=== PATIENT | male | born 1990 | race Hispanic/Latino ===

== ENCOUNTER 2020-06-30 10:35 | Emergency (ER) | payer SELFPAY ==
[2020-06-30 14:10] LABS: Urine Blood NEGATIVE (NEG); Urine Glucose NEGATIVE (NEG); Urine Protein NEGATIVE (NEG); Urine Specific Gravity 1.025 (1.005-1.030); Urine pH 7.5 (5.0-7.0)
--- NOTE | 2020-06-30 15:12 | EDPHYS ---
Physician Documentation [facility] Name: Saeed Stoll Age: 30 yrs Sex: Male : 1990 Arrival Date: 06/30/2020 Time: 10:36 Bed 28 Private MD: JOAQUIM Physician Abraham Lisa HPI: 06/30 15:03 This 30 yrs old Male presents to ER via Ambulatory with complaints of Back shirley Pain, Fever, Headache. 15:03 The patient presents with pain that is acute, and decreased range of motion. The shirley symptoms are located in the right subscapular area. Onset: The symptoms/episode began/occurred 2 day(s) ago. The pain does not radiate. Associated signs and symptoms: The patient has no apparent associated signs or symptoms. Modifying factors: The patient symptoms are alleviated by remaining still, the patient symptoms are aggravated by movement. Severity of symptoms: At their worst the symptoms were mild, in the emergency department the symptoms are unchanged. The patient has not experienced similar symptoms in the past. Historical: - Allergies: 11:56 No Known Allergies; ca1 - Home Meds: :56 None [Active]; ca1 - PMHx: :56 None; ca1 - PSHx: 11:56 Appendectomy; ca1 - Immunization history:: Flu vaccine is not up to date. - Social history:: Smoking status: Patient denies any tobacco usage or history of. - Family history:: not pertinent. ROS: 15:03 Constitutional: Negative for fever, chills, and weight loss, Eyes: Negative for injury, shirley pain, redness, and discharge, ENT: Negative for injury, pain, and discharge, Neck: Negative for injury, pain, and swelling, Cardiovascular: Negative for chest pain, palpitations, and edema, Respiratory: Negative for shortness of breath, cough, wheezing, and pleuritic chest pain, Abdomen/GI: Negative for abdominal pain, nausea, vomiting, diarrhea, and constipation, Back: Negative for injury and pain, : Negative for injury, bleeding, discharge, and swelling, MS/Extremity: Negative for injury and deformity, Skin: Negative for injury, rash, and discoloration, Neuro: Negative for headache, weakness, numbness, tingling, and seizure, Psych: Negative for depression, anxiety, suicide ideation, homicidal ideation, and hallucinations, Allergy/Immunology: Negative for hives, rash, and allergies, Endocrine: Negative for neck swelling, polydipsia, polyuria, polyphagia, and marked weight changes, Hematologic/Lymphatic: Negative for swollen nodes, abnormal bleeding, and unusual bruising. Exam: 15:04 Constitutional: This is a well developed, well nourished patient who is awake, alert, shirley and in no acute distress. Head/Face: Normocephalic, atraumatic. Eyes: Pupils equal round and reactive to light, extra-ocular motions intact. Lids and lashes normal. Conjunctiva and sclera are non-icteric and not injected. Cornea within normal limits. Periorbital areas with no swelling, redness, or edema. ENT: Nares patent. No nasal discharge, no septal abnormalities noted. Tympanic membranes are normal and external auditory canals are clear. Oropharynx with no redness, swelling, or masses, exudates, or evidence of obstruction, uvula midline. Mucous membranes moist. Neck: Trachea midline, no thyromegaly or masses palpated, and no cervical lymphadenopathy. Supple, full range of motion without nuchal rigidity, or vertebral point tenderness. No Meningismus. Cardiovascular: Regular rate and rhythm with a normal S1 and S2. No gallops, murmurs, or rubs. Normal PMI, no JVD. No pulse deficits. Respiratory: Lungs have equal breath sounds bilaterally, clear to auscultation and percussion. No rales, rhonchi or wheezes noted. No increased work of breathing, no retractions or nasal flaring. Abdomen/GI: Soft, non-tender, with normal bowel sounds. No distension or tympany. No guarding or rebound. No evidence of tenderness throughout. Back: No spinal tenderness. No costovertebral tenderness. Full range of motion. Male : Normal genitalia with no discharge or lesions. Skin: Warm, dry with normal turgor. Normal color with no rashes, no lesions, and no evidence of cellulitis. MS/ Extremity: Pulses equal, no cyanosis. Neurovascular intact. Full, normal range of motion. Neuro: Awake and alert, GCS 15, oriented to person, place, time, and situation. Cranial nerves II-XII grossly intact. Motor strength 5/5 in all extremities. Sensory grossly intact. Cerebellar exam normal. Normal gait. Psych: Awake, alert, with orientation to person, place and time. Behavior, mood, and affect are within normal limits. 15:04 Chest/axilla: Inspection: normal, no acute changes, Palpation: is normal, no acute changes, crepitus, is not appreciated, tenderness, is not appreciated. Vital Signs: 11:53 BP 125 / 86; Pulse 70; Resp 18 S; Temp 97.6(TE); Pulse Ox 100% on R/A; Weight 90.72 kg ca1 (R); Height 5 ft. 6 in. (167.64 cm) (R); Pain 5/10; 14:30 BP 125 / 78; Pulse 75; Resp 16 S; Temp 98.0(TE); Pulse Ox 99% on R/A; aa5 11:53 Body Mass Index 32.28 (90.72 kg, 167.64 cm) ca1 MDM: 13:37 Patient medically screened. shirley 15:05 Differential diagnosis: sprain. Data reviewed: vital signs, nurses notes, radiologic shirley studies. Data interpreted: athletic monitor: rate is 70 beats/min, rhythm is regular, Pulse oximetry: on room air is 70 %. Test interpretation: by ED physician or midlevel provider: plain radiologic studies. Counseling: I had a detailed discussion with the patient and/or guardian regarding: the historical points, exam findings, and any diagnostic results supporting the discharge/admit diagnosis, radiology results. 06/30 13:49 Order name: Urine Dipstick--Ancillary (enter results) eb 06/30 14:10 Order name: Urine Dipstick-Ancillary; Complete Time: 14:30 EDWV 06/30 14:30 Order name: Chest Single View XRAY shirley Administered Medications: 15:29 Drug: Motrin 600 mg Route: PO; aa5 15:35 Follow up: Response: Medication administered at discharge. aa5 Disposition: 06/30/20 15:11 Discharged to Home. Impression: Chest pain, unspecified - wall. - Condition is Stable. - Discharge Instructions: Nonspecific Chest Pain, Chest Wall Pain, Chest Wall Pain, [id number], Nonspecific Chest Pain, [id number]. - Prescriptions for Ibuprofen 600 mg Oral Tablet - take 1 tablet by ORAL route every 6 hours As needed take with food; 20 tablet. - Medication Reconciliation Form, Thank You Letter, Antibiotic Education, Prescription Opioid Use, Work release form form. - Follow up: Private Physician; When: 2 - 3 days; Reason: Recheck today's complaints, Continuance of care, Re-evaluation by your physician. - Problem is new. - Symptoms have improved. Signatures: Dispatcher [employer] Abraham Butler MD MD cha Calderon, Audri RN RN aa5 Clarisse Beltran RN RN ca1 Corrections: (The following items were deleted from the chart) 15:37 15:11 06/30/2020 15:11 Discharged to Home. Impression: Chest pain, unspecified - wall. aa5 Condition is Stable. Forms are Medication Reconciliation Form, Thank You Letter, Antibiotic Education, Prescription Opioid Use. Follow up: Private Physician; When: 2 - 3 days; Reason: Recheck today's complaints, Continuance of care, Re-evaluation by your physician. Problem is new. Symptoms have improved. shirley
--- NOTE | 2020-06-30 15:12 | ER ---
Nurse's Notes [facility] Name: Saeed Stoll Age: 30 yrs Sex: Male : 1990 Arrival Date: 06/30/2020 Time: 10:36 Bed 28 Private MD: Diagnosis: Chest pain, unspecified-wall Presentation: 06/30 11:53 Chief complaint: Patient states: Headache and pain on mid back and fever x 2 days. ca1 Coronavirus screen: Client denies travel out of the [place] in the last 14 days. fever, headache, Client presents with at least one sign or symptom that may indicate coronavirus-19. Standard/surgical mask placed on the client. Provider contacted for isolation considerations. Ebola Screen: Patient negative for fever greater than or equal to 101.5 degrees Fahrenheit, and additional compatible Ebola Virus Disease symptoms Patient denies exposure to infectious person. Patient denies travel to an Ebola-affected area in the 21 days before illness onset. No symptoms or risks identified at this time. Initial Sepsis Screen: Does the patient meet any 2 criteria? No. Patient's initial sepsis screen is negative. Does the patient have a suspected source of infection? No. Patient's initial sepsis screen is negative. Risk Assessment: Do you want to hurt yourself or someone else? Patient reports no desire to harm self or others. Onset of symptoms was June 30, 2020. 11:53 Method Of Arrival: Ambulatory ca1 11:53 Acuity: RAQUEL 3 ca1 Historical: - Allergies: 11:56 No Known Allergies; ca1 - Home Meds: 11:56 None [Active]; ca1 - PMHx: 11:56 None; ca1 - PSHx: 11:56 Appendectomy; ca1 - Immunization history:: Flu vaccine is not up to date. - Social history:: Smoking status: Patient denies any tobacco usage or history of. - Family history:: not pertinent. Screenin:45 Abuse screen: Denies threats or abuse. Nutritional screening: No deficits noted. aa5 Tuberculosis screening: No symptoms or risk factors identified. Fall Risk None identified. Assessment: 13:45 General: Appears comfortable, Behavior is calm, cooperative, Reports chills for 1-2 aa5 days, Pt states "I just got tested for COVID and it was negative". Pain: Complains of pain in right mid back Pain does not radiate. Pain currently is 5 out of 10 on a pain scale. Quality of pain is described as aching, Pain began 2-3 days ago. Pt states "the pain started after I had a massage done" Is continuous. Neuro: Level of Consciousness is awake, alert, obeys commands, Oriented to person, place, time, situation. Cardiovascular: Patient's skin is warm and dry. Respiratory: Airway is patent Respiratory effort is even, unlabored, Respiratory pattern is regular, symmetrical, Denies cough, shortness of breath. GI: No signs and/or symptoms were reported involving the gastrointestinal system. : Denies burning with urination, inability to void, urinary frequency, urgency. EENT: No signs and/or symptoms were reported regarding the EENT system. Derm: Skin is pink, warm \\T\\ dry. Musculoskeletal: Range of motion: intact in all extremities. 14:30 Reassessment: Patient is alert, oriented x 3, equal unlabored respirations, skin aa5 warm/dry/pink. 15:35 Reassessment: Patient is alert, oriented x 3, equal unlabored respirations, skin aa5 warm/dry/pink. Vital Signs: 11:53 BP 125 / 86; Pulse 70; Resp 18 S; Temp 97.6(TE); Pulse Ox 100% on R/A; Weight 90.72 kg ca1 (R); Height 5 ft. 6 in. (167.64 cm) (R); Pain 5/10; 14:30 BP 125 / 78; Pulse 75; Resp 16 S; Temp 98.0(TE); Pulse Ox 99% on R/A; aa5 11:53 Body Mass Index 32.28 (90.72 kg, 167.64 cm) ca1 ED Course: 10:36 Patient arrived in ED. am2 11:55 Triage completed. ca1 11:56 Arm band placed on right wrist. ca1 13:36 Rebekah Bertrand RN is Primary Nurse. aa5 13:37 Abraham Lisa MD is Attending Physician. shirley 13:45 Patient has correct armband on for positive identification. Bed in low position. Call aa5 light in reach. Side rails up X 1. 15:35 No provider procedures requiring assistance completed. Patient did not have IV access aa5 during this emergency room visit. Administered Medications: 15:29 Drug: Motrin 600 mg Route: PO; aa5 15:35 Follow up: Response: Medication administered at discharge. aa5 Outcome: 15:11 Discharge ordered by . shirley 15:35 Discharged to home ambulatory. aa5 15:35 Condition: stable 15:35 Discharge instructions given to patient, Instructed on discharge instructions, follow up and referral plans. medication usage, Demonstrated understanding of instructions, follow-up care, medications, Prescriptions given X 1. 15:37 Patient left the ED. aa5 Signatures: Abraham Lisa MD MD cha Calderon, Audri, RN RN aa5 Elyssa Vasquez Cheryl RN RN ca1
[2020-06-30] MEDS ORDERED: IBUPROFEN 200 MG TAB PO ONE (15:41)
[2020-06-30 15:42] VITALS: BP 125/86; TEMP 97.6; O2SAT 100
--- NOTE | 2020-06-30 15:43 | RAD REPORT ---
EXAM DESCRIPTION: Lázaro Single View06/30/2020 3:24 pm CLINICAL HISTORY: Shortness of breath COMPARISON: none FINDINGS: The lungs appear clear of acute infiltrate. The heart is normal size IMPRESSION: No acute abnormalities displayed
== END 2020-06-30 15:37 | disposition home or self-care (01) ==
LOC: ER 10:35
DX: R07.89 Other chest pain (principal)
CPT/HCPCS: 71045; 81003; 99283

== ENCOUNTER 2020-11-22 08:19 | Emergency (ER) | payer SELFPAY ==
--- NOTE | 2020-11-22 11:03 | EDPHYS ---
Physician Documentation [facility] Name: Saeed Stoll Age: 30 yrs Sex: Male : 1990 Arrival Date: 11/22/2020 Time: 08:32 Bed DIS4 Private MD: ED Physician Abraham Lisa HPI: 11/22 10:23 This 30 yrs old Male presents to ER via Ambulatory with complaints of Back jr8 Pain, bodyaches/chills, Fever. 10:23 Severity of symptoms: At their worst the symptoms were mild, in the emergency jr8 department the symptoms are unchanged. The patient has not experienced similar symptoms in the past. The patient has not recently seen a physician. 30-year-old male patient that for the past 2 weeks has had fever body aches chills and back pain. Concerned that he may have Covid as it is not going away. Denies any other symptoms at this time.. Historical: - Allergies: 09:29 No Known Allergies; iw - Immunization history:: Adult Immunizations unknown. - Social history:: Smoking status: . ROS: 10:23 Cardiovascular: Negative for chest pain, palpitations, and edema, Abdomen/GI: Negative jr8 for abdominal pain, nausea, vomiting, diarrhea, and constipation, MS/Extremity: Negative for injury and deformity, Skin: Negative for injury, rash, and discoloration, Neuro: Negative for headache, weakness, numbness, tingling, and seizure. 10:23 Constitutional: Positive for body aches, chills, fever. 10:23 Respiratory: Positive for cough, Negative for shortness of breath. 10:23 Back: Positive for pain at rest, Negative for decreased range of motion, pain with movement. Exam: 10:23 Constitutional: This is a well developed, well nourished patient who is awake, alert, jr8 and in no acute distress. Eyes: Pupils equal round and reactive to light, extra-ocular motions intact. Lids and lashes normal. Conjunctiva and sclera are non-icteric and not injected. Cornea within normal limits. Periorbital areas with no swelling, redness, or edema. ENT: Nares patent. No nasal discharge, no septal abnormalities noted. Tympanic membranes are normal and external auditory canals are clear. Oropharynx with no redness, swelling, or masses, exudates, or evidence of obstruction, uvula midline. Mucous membranes moist. Neck: Trachea midline, no thyromegaly or masses palpated, and no cervical lymphadenopathy. Supple, full range of motion without nuchal rigidity, or vertebral point tenderness. No Meningismus. Cardiovascular: Regular rate and rhythm with a normal S1 and S2. No gallops, murmurs, or rubs. Normal PMI, no JVD. No pulse deficits. Respiratory: Lungs have equal breath sounds bilaterally, clear to auscultation and percussion. No rales, rhonchi or wheezes noted. No increased work of breathing, no retractions or nasal flaring. Abdomen/GI: Soft, non-tender, with normal bowel sounds. No distension or tympany. No guarding or rebound. No evidence of tenderness throughout. Back: No spinal tenderness. No costovertebral tenderness. Full range of motion. Skin: Warm, dry with normal turgor. Normal color with no rashes, no lesions, and no evidence of cellulitis. MS/ Extremity: Pulses equal, no cyanosis. Neurovascular intact. Full, normal range of motion. Neuro: Awake and alert, GCS 15, oriented to person, place, time, and situation. Cranial nerves II-XII grossly intact. Motor strength 5/5 in all extremities. Sensory grossly intact. Cerebellar exam normal. Normal gait. Vital Signs: 09:29 BP 134 / 74; Pulse 89; Resp 16; Temp 98.7; Pulse Ox 100% on R/A; iw MDM: 09:03 Patient medically screened. [facility] 10:23 Data reviewed: vital signs, nurses notes, lab test result(s). Data interpreted: Pulse [facility] oximetry: on room air is 100 %. Interpretation: normal. Counseling: I had a detailed discussion with the patient and/or guardian regarding: the historical points, exam findings, and any diagnostic results supporting the discharge/admit diagnosis, lab results, the need for outpatient follow up, a family practitioner, to return to the emergency department if symptoms worsen or persist or if there are any questions or concerns that arise at home. 11/22 09:03 Order name: COVID-19 : Document "Date of Symptom Onset" if Symptomatic. [facility] 11/22 10:59 Order name: SARS-COV-2 RT PCR; Complete Time: 11:01 EDMS Administered Medications: No medications were administered Disposition: 11/23 07:04 Co-signature as Attending Physician, Abraham Lisa MD I agree with the assessment and shirley plan of care. Disposition Summary: 11/22/20 11:02 Discharge Ordered Location: Home jr8 Problem: new jr8 Symptoms: have improved jr8 Condition: Stable jr8 Diagnosis - Viral infection, unspecified jr8 Followup: jr8 - With: Private Physician - When: 2 - 3 days - Reason: Recheck today's complaints, Continuance of care, Re-evaluation by your physician Discharge Instructions: - Discharge Summary Sheet jr8 - Viral Respiratory Infection jr8 Forms: - Medication Reconciliation Form jr8 - Thank You Letter jr8 - Antibiotic Education jr8 - Prescription Opioid Use jr8 Signatures: Dispatcher [employer] EDAbraham Owens MD MD cha Williams, Irene RN RN iw Polo Goldberg PA PA jr8 Corrections: (The following items were deleted from the chart) 11/22 10:01 09:03 CORONAVIRUS ordered. [facility]
--- NOTE | 2020-11-22 11:03 | ER ---
Nurse's Notes [facility] Name: Saeed Stoll Age: 30 yrs Sex: Male : 1990 Arrival Date: 11/22/2020 Time: 08:32 Bed DIS4 Private MD: Diagnosis: Viral infection, unspecified Presentation: 11/22 09:05 Chief complaint: Patient states: cough, intermittent fever, body aches X 2 weeks. iw Coronavirus screen: chills, cough unrelated to allergies. Ebola Screen: Patient negative for fever greater than or equal to 101.5 degrees Fahrenheit, and additional compatible Ebola Virus Disease symptoms Patient denies exposure to infectious person. Patient denies travel to an Ebola-affected area in the 21 days before illness onset. No symptoms or risks identified at this time. Initial Sepsis Screen: Does the patient meet any 2 criteria? No. Patient's initial sepsis screen is negative. Does the patient have a suspected source of infection? No. Patient's initial sepsis screen is negative. Risk Assessment: Do you want to hurt yourself or someone else? Patient reports no desire to harm self or others. Onset of symptoms was November 08, 2020. 09:05 Method Of Arrival: Ambulatory iw 09:05 Acuity: RAQUEL 4 iw Historical: - Allergies: : No Known Allergies; iw - Immunization history:: Adult Immunizations unknown. - Social history:: Smoking status: . Screenin:00 Abuse screen: Denies threats or abuse. Denies injuries from another. Nutritional iw screening: No deficits noted. Tuberculosis screening: No symptoms or risk factors identified. Fall Risk None identified. Assessment: 11:00 General: Appears in no apparent distress. comfortable, Behavior is calm, cooperative. iw 11:00 Neuro: No deficits noted. Level of Consciousness is awake, alert, obeys commands. iw 11:00 Pain: Complains of pain in back. iw Vital Signs: 09:29 BP 134 / 74; Pulse 89; Resp 16; Temp 98.7; Pulse Ox 100% on R/A; iw ED Course: 08:32 Patient arrived in ED. am2 09:02 Polo Goldberg PA is PHCP. jr8 09:02 Abraham Lisa MD is Attending Physician. jr8 09:05 Triage completed. iw 09:05 Arm band placed on. iw 09:14 Meryl Kidd, RN is Primary Nurse. iw 11:24 No provider procedures requiring assistance completed. Patient did not have IV access iw during this emergency room visit. Administered Medications: No medications were administered Outcome: 11:02 Discharge ordered by MD. hudson 11:24 Discharged to home ambulatory. iw 11:24 Condition: good 11:24 Discharge instructions given to patient, Instructed on discharge instructions, follow up and referral plans. Demonstrated understanding of instructions, follow-up care. 11:25 Patient left the ED. shirley Signatures: Abraham Lisa MD MD cha Williams, Irene, RN RN iw Polo Goldberg PA PA jr8 Elyssa Vasquez am2 Corrections: (The following items were deleted from the chart) 20:49 20:48 Neuro: No deficits noted. Level of Consciousness is awake, alert, obeys commands, iw iw
[2020-11-22 11:33] VITALS: BP 134/74; TEMP 98.7; O2SAT 100
== END 2020-11-22 11:25 | disposition home or self-care (01) ==
LOC: ER 08:19
DX: B34.9 Viral infection, unspecified (principal); Z20.822 Contact with and (suspected) exposure to COVID-19
CPT/HCPCS: U0003

== ENCOUNTER 2022-01-22 10:05 | Emergency (ER) | payer SELFPAY ==
[2022-01-22 11:15] LABS: Urine Blood Negative (Negative); Urine Glucose Negative (Negative); Urine Protein Negative (Negative); Urine Specific Gravity 1.015 (1.005-1.030); Urine pH 7.5 (5.0-7.0)
--- NOTE | 2022-01-22 11:29 | RAD REPORT ---
EXAM DESCRIPTION: RAD - Lumbar Spine 3 Views - 01/22/2022 10:56 am CLINICAL HISTORY: PAIN Radiculopathy COMPARISON: No comparisons FINDINGS: Vertebral body heights appear maintained. No compression fracture noted. Disc spaces are m aintained. Bilateral spondylolysis is present at L5-S1 without spondylolisthesis.
--- NOTE | 2022-01-22 11:57 | RAD REPORT ---
EXAM DESCRIPTION: RAD - Sacrum And Coccyx - 01/22/2022 10:56 am CLINICAL HISTORY: PAIN COMPARISON: Lumbar Spine 3 Views dated 01/22/2022 FINDINGS: No bone or joint abnormality detected.
--- NOTE | 2022-01-22 12:02 | EDPHYS ---
Physician Documentation [facility] Name: Saeed Stoll Age: 31 yrs Sex: Male : 1990 Arrival Date: 01/22/2022 Time: 10:10 Bed 17 Private MD: ED Physician Los Bauman HPI: 01/22 15:57 This 31 yrs old Male presents to ER via Ambulatory with complaints of Back kb Pain. 15:57 The patient presents with pain that is acute. The symptoms are located in the low back, kb coccyx area. Onset: The symptoms/episode began/occurred 2 month(s) ago. The pain does not radiate. Associated signs and symptoms: Pertinent positives: urinary frequency. The problem was sustained from unknown cause. Modifying factors: The patient symptoms are alleviated by nothing, the patient symptoms are aggravated by nothing. Severity of symptoms: At their worst the symptoms were moderate, in the emergency department the symptoms are unchanged. The patient has not experienced similar symptoms in the past. The patient has not recently seen a physician. Pt reports low back pain and urinary frequency that started 2 months ago. States he did fall at some point but doesn't know when the fall was in correlation to the pain starting. . Historical: - Allergies: 10:21 No Known Allergies; ap3 - Home Meds: 10:21 None [Active]; ap3 - PMHx: 10:21 None; ap3 - Immunization history:: Client reports receiving the 2nd dose of the Covid vaccine. - Social history:: Smoking status: Patient reports the use of cigarette tobacco products, denies chronic smoking, but will smoke occasionally, Patient uses alcohol, occasionally. ROS: 15:55 Constitutional: Negative for fever, chills, and weight loss. kb 15:55 Back: Positive for pain at rest, pain with movement, of the lumbar area and sacrum. 15:55 : Positive for urinary frequency. 15:55 All other systems are negative. Exam: 15:55 Constitutional: This is a well developed, well nourished patient who is awake, alert, kb and in no acute distress. Head/Face: Normocephalic, atraumatic. ENT: Moist Mucous membranes Cardiovascular: Regular rate and rhythm with a normal S1 and S2. No gallops, murmurs, or rubs. No pulse deficits. Respiratory: Respirations even and unlabored. No increased work of breathing. Talking in full sentences Abdomen/GI: Soft, non-tender. No distention Skin: Warm, dry with normal turgor. Normal color. MS/ Extremity: Pulses equal, no cyanosis. Neurovascular intact. Full, normal range of motion. Neuro: Awake and alert, GCS 15, oriented to person, place, time, and situation. Moves all extremities. Normal gait. Psych: Awake, alert, with orientation to person, place and time. Behavior, mood, and affect are within normal limits. 15:55 Back: pain, that is mild, of the lumbar area, ROM is normal, normal spinal alignment noted. 15:59 Neuro: Exam negative for acute changes. kb Vital Signs: 10:23 BP 147 / 101; Pulse 89; Resp 18; Temp 97.9; Pulse Ox 100% ; Weight 72.57 kg; Height 5 ap3 ft. 6 in. (167.64 cm); Pain 7/10; 10:24 BP 147 / 101; ap3 10:23 Body Mass Index 25.82 (72.57 kg, 167.64 cm) ap3 MDM: 10:16 Patient medically screened. kb 12:01 Data reviewed: vital signs, nurses notes. Data interpreted: Pulse oximetry: on room air kb is 100 %. Interpretation: normal. Counseling: I had a detailed discussion with the patient and/or guardian regarding: the historical points, exam findings, and any diagnostic results supporting the discharge/admit diagnosis, lab results, radiology results, the need for outpatient follow up, a family practitioner, to return to the emergency department if symptoms worsen or persist or if there are any questions or concerns that arise at home. 01/22 11:16 Order name: Urine Dipstick-Ancillary; Complete Time: 11:18 EDMS 01/22 11:22 Order name: Glucose, Ancillary Testing; Complete Time: 11:24 EDMS 01/22 10:23 Order name: Lumbar Spine (3 Views) XRAY 01/22 10:23 Order name: Sacrum And Coccyx XRAY 01/22 11:30 Order name: RAD; Complete Time: 11:30 EDMS 01/22 11:58 Order name: RAD; Complete Time: 12:01 EDMS 01/22 10:23 Order name: Urine Dipstick-Ancillary (obtain specimen); Complete Time: 11:10 kb 01/22 10:23 Order name: Blood Glucose Level; Complete Time: 11:10 kb Administered Medications: No medications were administered Disposition: 13:48 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 I agree with assessment [id number] and care plan and confirm the diagnosis (es) above. Attestation: The patient's history, exam findings, diagnostics, and a summary of any interventions or procedures was reviewed in detail with Keyla CHEEK. Disposition Summary: 01/22/22 12:01 Discharge Ordered Location: Home kb Condition: Stable kb Diagnosis - Low back pain kb Followup: kb - With: Emergency Department - When: As needed - Reason: Worsening of condition Followup: kb - With: Private Physician - When: 2 - 3 days - Reason: Recheck today's complaints, Continuance of care, Re-evaluation by your physician Discharge Instructions: - Discharge Summary Sheet kb - Acute Back Pain, Adult kb - Musculoskeletal Pain kb Forms: - Medication Reconciliation Form kb - Thank You Letter kb - Antibiotic Education kb - Prescription Opioid Use kb Prescriptions: - Diclofenac Sodium 75 mg Oral tablet,delayed release (DR/EC) - take 1 tablet by ORAL route 2 times per day As needed; 30 tablet; Refills: 0, kb Product Selection Permitted Signatures: Dispatcher [employer] Keyla Moore FNP-C FNP-Ckb Prokisch, Amanda RN RN ap3 Los Bauman MD MD [id number]
--- NOTE | 2022-01-22 12:02 | ER ---
Nurse's Notes [facility] Name: Saeed Stoll Age: 31 yrs Sex: Male : 1990 Arrival Date: 01/22/2022 Time: 10:10 Bed 17 Private MD: Diagnosis: Low back pain Presentation: 01/22 10:18 Chief complaint: Patient states: he has been having back pain for approx 2 months that ap3 hurts more when he moves around. patient states that he also gets fever and chills with the pain. Coronavirus screen: At this time, the client does not indicate any symptoms associated with coronavirus-19. Ebola Screen: No symptoms or risks identified at this time. Risk Assessment: Do you want to hurt yourself or someone else? Patient reports no desire to harm self or others. Onset of symptoms was November 2021. 10:18 Method Of Arrival: Ambulatory ap3 10:18 Acuity: RAQUEL 3 ap3 10:24 Initial Sepsis Screen: Does the patient meet any 2 criteria? No. Patient's initial ap3 sepsis screen is negative. Does the patient have a suspected source of infection? No. Patient's initial sepsis screen is negative. Triage Assessment: 10:22 General: Appears in no apparent distress. Behavior is calm, cooperative. Pain: ap3 Complains of pain in low back area. Neuro: Level of Consciousness is awake, alert, obeys commands, Oriented to person, place, time, situation, Gait is steady. Cardiovascular: Patient's skin is warm and dry. Respiratory: Airway is patent Respiratory effort is even, unlabored. Musculoskeletal: Range of motion: intact in all extremities. Historical: - Allergies: 10:21 No Known Allergies; ap3 - Home Meds: 10:21 None [Active]; ap3 - PMHx: 10:21 None; ap3 - Immunization history:: Client reports receiving the 2nd dose of the Covid vaccine. - Social history:: Smoking status: Patient reports the use of cigarette tobacco products, denies chronic smoking, but will smoke occasionally, Patient uses alcohol, occasionally. Screenin:23 Abuse screen: Denies threats or abuse. Nutritional screening: No deficits noted. ap3 Tuberculosis screening: No symptoms or risk factors identified. Assessment: 11:40 Neuro: No deficits noted. Neuro: Level of Consciousness is awake, alert, obeys mb8 commands, Oriented to person, place, time, situation, Appropriate for age Group President are equal bilaterally Moves all extremities. Full function Gait is steady, Speech is normal, Facial symmetry appears normal, Intact. Musculoskeletal: Reports pain in lower back down right leg. Vital Signs: 10:23 BP 147 / 101; Pulse 89; Resp 18; Temp 97.9; Pulse Ox 100% ; Weight 72.57 kg; Height 5 ap3 ft. 6 in. (167.64 cm); Pain 7/10; 10:24 BP 147 / 101; ap3 10:23 Body Mass Index 25.82 (72.57 kg, 167.64 cm) ap3 ED Course: 10:10 Patient arrived in ED. as 10:15 [facility] Osborne [facility]C [facility] kb 10:15 Los Bauman MD is Attending Physician. kb 10:21 Triage completed. ap3 10:23 Arm band placed on right wrist. ap3 10:24 Patient has correct armband on for positive identification. ap3 11:32 Jorge Luis Nunn, RN is Primary Nurse. mb8 11:40 No provider procedures requiring assistance completed. Patient did not have IV access mb8 during this emergency room visit. Administered Medications: No medications were administered Medication: 11:40 VIS not applicable for this client. mb8 Outcome: 12:01 Discharge ordered by . kb 12:29 Discharged to home ambulatory. mb8 12:29 Condition: stable 12:29 Discharge instructions given to patient, Instructed on discharge instructions, follow up and referral plans. medication usage, Demonstrated understanding of instructions, follow-up care, medications, Prescriptions given X 1. 12:29 Patient left the ED. mb8 Signatures: Keyla Osborne FNP-C FNP-Bonnie Villafuerte Amanda RN RN ap3 Jorge Luis Nunn, RAQUEL RN mb8
[2022-01-22 12:37] VITALS: BP 147/101; TEMP 97.9; O2SAT 100
== END 2022-01-22 12:29 | disposition home or self-care (01) ==
LOC: ER 10:05
DX: M54.50 Low back pain, unspecified (principal)
CPT/HCPCS: 72100; 72220; 81003; 82947; 99282